=== PATIENT | female | born 2000 | race Hispanic/Latino ===

== ENCOUNTER 2024-08-25 21:27 | Emergency (ER) | payer MEDICAID ==
[~2024-08-25] VITALS: Ht 165.1 cm; Wt 97.5 kg
--- NOTE | 2024-08-25 21:32 | NUR ---
UA CUP PROVIDED
--- NOTE | 2024-08-25 21:39 | NUR ---
UA COLLECTED AND SENT
[2024-08-25 23:24] LABS: APPEARANCE,URINE TURBID (CLEAR); BILIRUBIN,URINE NEGATIVE (NEGATIVE); COLOR,URINE LIGHT-ORANGE (YELLOW); GLUCOSE, URINE (UA) NEGATIVE (NEGATIVE); KETONES,URINE NEGATIVE (NEGATIVE); LEUKOCYTE ESTERASE ,URINE 25 Leu/uL (NEGATIVE); NITRATE,URINE NEGATIVE (NEGATIVE); OCCULT BLOOD,URINE NEGATIVE (NEGATIVE); PROTEIN,URINE NEGATIVE (NEGATIVE); UROBILINOGEN,URINE 0.2 mg/dL (0.2-1.0)
[2024-08-25 23:26] LABS: ADD UA MICROSCOPIC YES
[2024-08-25 23:33] LABS: BACTERIA,URINE RARE /HPF (None Seen); SQUAMOUS EPITHELIAL CELL,UR MANY /HPF (0-2)
[2024-08-26] MEDS: 0.9%NACL 1000ML 1,000 ML IV ONE (00:10)
[2024-08-26] MEDS: ondanSETRON 4MG INJ IVP ONE (00:11)
[2024-08-26] MEDS: morPHINE 4 MG SYG IVP ONE (00:11)
[2024-08-26] MEDS: PANTOPrazole 40 MG/VIAL IVP ONE (00:11)
[2024-08-26 00:29] LABS: CREATININE 0.5 mg/dL (0.5-1.0); POTASSIUM 3.6 mmol/L (3.5-5.1)
[2024-08-26 00:34] LABS: ALBUMIN 3.9 g/dL (3.5-5.0); BILIRUBIN,DIRECT 0.1 mg/dL (0.0-0.3); BILIRUBIN,TOTAL 0.3 mg/dL (0.2-1.0); TOTAL PROTEIN, SERUM 7.8 g/dL (6.0-8.3)
[2024-08-26 00:38] LABS: BASOPHILS # (AUTO) 0.03 K/uL (0.00-0.20); BASOPHILS % (AUTO) 0.3 % (0.0-5.0); EOSINOPHILS # (AUTO) 0.09 K/uL (0.00-0.70); EOSINOPHILS % (AUTO) 0.8 % (0.0-8.0); HEMATOCRIT 39.8 % (36-48); IMMATURE GRANULOCYTE ABSOLUTE 0.04 K/uL (0-1); LYMPHOCYTES # (AUTO) 1.8 K/uL (1.0-4.8); LYMPHOCYTES % (AUTO) 14.9 % (21.0-51.0); MEAN CORPUSCULAR HGB CONC 32.2 g/dL (32.0-36.0); MONOCYTES # (AUTO) 0.6 K/uL (0.1-1.0); MONOCYTES % (AUTO) 5.2 % (3.0-13.0); NEUTROPHILS # (AUTO) 9.3 K/uL (1.8-7.7); NEUTROPHILS % (AUTO) 78.5 % (40.0-77.0); PLATELET COUNT (AUTO) 295 K/uL (130-400); RED BLOOD CELL COUNT(AUTO) 4.74 MIL/uL (4.00-5.50); RED CELL DISTRIBUTION WIDTH 13.5 % (11.0-15.5); WHITE BLOOD COUNT (AUTO) 11.9 K/uL (4.8-10.8)
--- NOTE | 2024-08-26 01:01 | ERN ---
ED Note History of Present Illness Stated Complaint: ABD/ BACK PAIN Chief Complaint: Abdominal Pain Time Seen by MD: 22:00 Time Seen by Midlevel: 22:00 Dictation: The patient is a 24-year-old female who presents to the emergency department with complaints of epigastric abdominal pain onset this morning associated with nausea. Patient reports she had pizza this morning and then prior to arrival she had three jalapeno poppers which then caused her to have the epigastric pain that radiated to the back. Denies any vomiting, diarrhea or constipation. Denies any fevers. Allergies: Coded Allergies: No Known Allergies (Unverified Allergy, Unknown, 08/25/24) Past Medical History Past Medical History: No Pertinent History Surgical History: Tonsillectomy, Other Surgical History Other: ADENOIDS LMP: Jul 27, 2024 RN Note Reviewed/Agreed w/PFSH: Yes Review of System Dictation Constitutional: Negative for fever,chills, and weight loss Eyes: Negative for injury, pain,redness, and discharge ENT: Negative for injury,pain or swelling Cardiovascular: Negative for chest pain, palpitations, and edema Respiratory: Negative for shortness of breath, cough, and wheezing, Abdomen/GI: Negative for vomiting, diarrhea, and constipation positive for abdominal pain, nausea Back: Negative for injury and pain : Negative for injury, bleeding and discharge MS/Extremity: Negative for injury and deformity Skin: Negative for rash, and discoloration Neuro: Negative for headache, weakness, numbness, tingling, and seizure Psych: Negative for suicide ideation, homicidal ideation, and hallucinations Initial Vital Sign VS Vital Signs Date Time Temp Pulse Resp B/P (MAP) Pulse Ox O2 Delivery O2 Flow Rate FiO2 08/25/24 21:28 99.7 106 20 136/97 100 Room Air Physical Exam Dictation Vital Signs reviewed General Appearance: Alert, oriented x 3, no acute distress, well developed, nourished. Head and Face: non-traumatic. Eyes: PERRL, pink conjunctivas, eyelid no trauma, anterior chamber with arcus senilis. Ears: Pinnas intact and no signs of trauma or erythema ear canals clear and no discharge TM no erythema Nose: No discharge, no bleeding. Oropharynx: Mouth normal, tongue pink. pharynx clear,no erythema, tonsils no exudates, no abscesses noted, mucous membrane moist Neck: Supple, non-tender, no thyromegaly, no masses, no JVD, no bruits Breast:Deferred Chest:No tenderness, no crepitus, no paradoxical movement, no retractions Lungs:Clear, well-ventilated, symmetric, no rales, no wheezing, no rhonchi, no stridor, good breath sounds bilaterally Heart: Regular rate, regular rhythm, no murmur, no gallops Vascular: no peripheral edema, Abdomen: Soft, positive bowel sounds, nondistended, no guarding, Epigastric tenderness, no rebound, no masses no hepatomegaly, no splenomegaly, no Solo's sign, no hernias. Rectal: Deferred Genital: Deferred Neurological: Normal speech, motor function intact, sensory function intact Musculoskeletal: Neck nontender, full range of motion, back nontender, full range of motion, Extremities: nontender, full range of motion Skin: Color pink, dry, no turgor, no rash, no lacerations, no abrasions, no contusions. Lymphatic: Deferred Results (Laboratory/Radiology) Laboratory/Radiology Laboratory Tests Test 08/25/24 21:39 08/26/24 00:08 Urine Color LIGHT-ORANGE (YELLOW) Urine Appearance TURBID (CLEAR) Urine pH 6.0 (5.0-8.0) Urine Specific [place] 1.027 (1.001-1.031) Urine Protein NEGATIVE mg/dL (NEGATIVE) Urine Glucose (UA) NEGATIVE mg/dL (NEGATIVE) Urine Ketones NEGATIVE mg/dL (NEGATIVE) Urine Occult Blood NEGATIVE (NEGATIVE) Urine Nitrate NEGATIVE (NEGATIVE) Urine Bilirubin NEGATIVE mg/dL (NEGATIVE) Urine Urobilinogen 0.2 mg/dL (0.2-1.0) Urine Leukocyte Esterase 25 Jean[place]ude/uL (NEGATIVE) H Urine RBC 2-5 /HPF (0-1) H Urine WBC 2-5 /HPF (0-1) H Urine Squamous Epithelial Cells MANY /HPF (0-2) Urine Amorphous Crystals (Auto) FEW /LPF (None Seen) Urine Bacteria RARE /HPF (None Seen) White Blood Count 11.9 K/uL (4.8-10.8) H Red Blood Count 4.74 MIL/uL (4.00-5.50) Hemoglobin 12.8 g/dL (12.0-16.0) Hematocrit 39.8 % (36-48) Mean Corpuscular Volume 84.0 fL (79-99) Mean Corpuscular Hemoglobin 27.0 pg (27.0-33.0) Mean Corpuscular Hemoglobin Concent 32.2 g/dL (32.0-36.0) Red Cell Distribution Width 13.5 % (11.0-15.5) Platelet Count 295 K/uL (130-400) Mean Platelet Volume 11.5 fL (7.5-10.5) H Immature Granulocyte % (Auto) 0.3 % (0-1) Neutrophils (%) (Auto) 78.5 % (40.0-77.0) H Lymphocytes (%) (Auto) 14.9 % (21.0-51.0) L Monocytes (%) (Auto) 5.2 % (3.0-13.0) Eosinophils (%) (Auto) 0.8 % (0.0-8.0) Basophils (%) (Auto) 0.3 % (0.0-5.0) Neutrophils # (Auto) 9.3 K/uL (1.8-7.7) H Lymphocytes # (Auto) 1.8 K/uL (1.0-4.8) Monocytes # (Auto) 0.6 K/uL (0.1-1.0) Eosinophils # (Auto) 0.09 K/uL (0.00-0.70) Basophils # (Auto) 0.03 K/uL (0.00-0.20) Absolute Immature Granulocyte (auto 0.04 K/uL (0-1) Nucleated Red Blood Cells 0.0 % (0.0-0.19) Sodium Level 136 mmol/L (136-145) Potassium Level 3.6 mmol/L (3.5-5.1) Chloride Level 102 mmol/L (101-111) Carbon Dioxide Level 26 mmol/L (21-32) Blood Urea Nitrogen 14 mg/dL (7-18) Creatinine 0.5 mg/dL (0.5-1.0) Glomerular Filtration Rate Calc 135 mL/min (>90) Random Glucose 98 mg/dL (70-105) Total Calcium 9.0 mg/dL (8.5-10.1) Total Bilirubin 0.3 mg/dL (0.2-1.0) Direct Bilirubin 0.1 mg/dL (0.0-0.3) Aspartate Amino Transf (AST/SGOT) 14 U/L (10-37) Alanine Aminotransferase (ALT/SGPT) 16 U/L (12-78) Alkaline Phosphatase 104 U/L (50-136) Total Protein 7.8 g/dL (6.0-8.3) Albumin 3.9 g/dL (3.5-5.0) Lipase 37 U/L (16-77) Serum Test, Qualitative NEGATIVE (NEGATIVE) Labs Reviewed?: Yes ED Course ED Course Orders Procedure Category Date Status Time Cbc With Differential LAB 08/25/24 Complete 22:45 0.9%Nacl 1000ml (Ns PHA 08/25/24 Complete 1000ml) 23:00 Morphine 4mg Syg PHA 08/25/24 Complete (Morphine 4mg Syg) 23:00 Ondansetron 4mg Inj PHA 08/25/24 Complete (Zofran 4mg Inj) 23:00 Pantoprazole 40mg Inj PHA 08/25/24 Complete (Protonix 40mg Inj 23:00 Lipase LAB 08/25/24 Complete 22:45 Basic Metabolic Panel LAB 08/25/24 Complete 22:45 Testing, LAB 08/25/24 Complete Serum Hcg 22:45 Hepatic Function Panel LAB 08/25/24 Complete 22:45 Urinalysis Profile LAB 08/25/24 Complete 22:45 Current Medications Medications (Trade) Dose Ordered Sig/[place] Route PRN Reason Start Time Stop Time Status Last Admin Dose Admin Morphine Sulfate (morPHINE 4MG SYG) 4 mg ONCE ONCE IVP 08/25/24 23:00 08/25/24 23:01 DC 08/26/24 00:11 Ondansetron HCl (zoFRAN 4MG INJ) 4 mg ONCE ONCE IVP 08/25/24 23:00 08/25/24 23:01 DC 08/26/24 00:11 Pantoprazole Sodium (PROTonix 40MG INJ) 40 mg ONCE ONCE IVP 08/25/24 23:00 08/25/24 23:01 DC 08/26/24 00:11 Sodium Chloride 1,000 ml @ 0 mls/hr ONCE ONCE IV 08/25/24 23:00 08/25/24 23:01 DC 08/26/24 00:10 Vital Signs Date Time Temp Pulse Resp B/P (MAP) Pulse Ox O2 Delivery O2 Flow Rate FiO2 08/25/24 21:28 99.7 106 20 136/97 100 Room Air Medical Decision Making MDM The patient is a 24-year-old female who presents to the emergency department with complaints of epigastric abdominal pain onset this morning associated with nausea. Patient reports she had pizza this morning and then prior to arrival she had three jalapeno poppers which then caused her to have the epigastric pain that radiated to the back. Denies any vomiting, diarrhea or constipation. Denies any fevers. CBC showed mild leukocytosis, no anemia, chemistry showed no electrolyte imbalance, normal renal function, negative lipase, normal liver enzymes. Urinalysis with slight leukocyte esterase. Patient reports improving in pain with medications. Patient with a nontender abdomen will be discharged to follow up with PCP. Patient no acute distress. Differential diagnosis: Gastroenteritis, gastritis, electrolyte imbalance, dehydration Need for hospitalization: Patient does not meet criteria for hospitalization. There are no social concerns with this patient. DX & DISP Disposition: Discharge Departure Impression: Primary Impression: Gastritis Additional Impression: UTI (urinary tract infection) Condition: Stable Scripts Nitrofurantoin Monohyd/M-Cryst (Macrobid 100 mg Capsule) 100 Mg Capsule 1 CAP PO BID for 5 Days, #10 CAP 0 Refills Prov: DEE SOSA 08/26/24 Pantoprazole Sodium (Pantoprazole Sodium) 20 Mg Tablet.dr 1 TAB PO DAILY for 30 Days, #30 TAB 0 Refills Prov: DEE SOSA 08/26/24 Ondansetron (Ondansetron Odt) 4 Mg Tab.rapdis 4 MG PO Q6HPRN PRN for nausea, #16 TAB 0 Refills Prov: DEE SOSA 08/26/24 Mag Hydrox/Al Hydrox/Simeth (Maalox Maximum Strength Susp) 400 Mg-400 Mg-40 Mg/5 Ml Oral.susp 20 ML PO Q6H for 5 Days, #355 ML 0 Refills Prov: DEE SOSA 08/26/24 Additional Instructions: Take medications as prescribed. Avoid any foods that exacerbate your symptoms. If symptoms worsen please return to ER. FOLLOW-UP WITH PRIMARY CARE PROVIDER IN 1 TO 2 DAYS. TAKE MEDICATIONS DIRECTED HERE IN THE EMERGENCY ROOM. OKAY TO CONTINUE HOME MEDICATIONS UNLESS OTHERWISE DISCUSSED DURING YOUR VISIT IN THE EMERGENCY ROOM TODAY. RETURN TO YOUR NEAREST EMERGENCY ROOM IF SYMPTOMS WORSEN OR IF THERE IS NO IMPROVEMENT. CALL 911 IF YOU NEED IMMEDIATE ASSISTANCE. TAKE TYLENOL OR MOTRIN [id number] NEEDED AND IF NO CONTRAINDICATIONS ARE PRESENT. INCREASE ORAL HYDRATION. A WOUND CULTURE OR URINE CULTURE WAS ORDERED HERE IN THE EMERGENCY ROOM DEPARTMENT PLEASE FOLLOW-UP WITH PRIMARY CARE PROVIDER AND ADVISE THEM TO GET REPEAT PORTS FROM OUR FACILITY. IF YOU HAD ANY FER WRAP/SPLINTS THAT WERE APPLIED HERE, PLEASE DO NOT REMOVE THEM UNTIL YOU SEE YOUR PRIMARY CARE OR SPECIALTY. Referrals: SELF,REFERRAL (PCP) Time of Disposition: 01:11 I have reviewed the case, and I agree with, Diagnosis and Plan DEE SOSA OYSTER FISHERMAN Aug 26, 2024 01:01
[2024-08-26] MEDS ORDERED: PANT20TA18 PO (01:13)
[2024-08-26] MEDS ORDERED: MAG-55 PO (01:13)
[2024-08-26] MEDS ORDERED: ONDA-243 PO (01:13)
[2024-08-26] MEDS ORDERED: NITR100C4 PO (01:13)
[2024-08-26] MEDS: cefTRIAXone 1G VIAL IVPB ONE (01:27)
[2024-08-26] MEDS ORDERED: IOHEXOL 350 MG/ML 100ML INFUS..BTL IV ONE (01:55)
[2024-08-26] MEDS ORDERED: FAMO-136 PO (03:30)
[2024-08-26] MEDS ORDERED: OMEP20CA12 PO (03:30)
[2024-08-26] MEDS ORDERED: FAMOTIDINE 20MG VIAL IV ONE (03:30)
[2024-08-26] MEDS: FAMOTIDINE 20MG VIAL IV ONE (03:46)
[2024-08-26 03:56] VITALS: BP 135/65; PULSE 88; RESP 18; TEMP 98.9; O2SAT 99
--- NOTE | 2024-08-26 08:45 | HMCIMG ---
Exam Type: CT ABDOMEN/PELVIS W/CONTRAST Clinical Information: persistent mid epigastric abd pain Comparison: None Contrast: 100 cc's Isovue 370 IV, no complications or adverse reactions CT Dose Index (CTDI): 31.60 mGy Dose Length Product (DLP): 1740.80 total mGy-cm Findings: No evidence of nephro or ureterolithiasis is found. No hydronephrosis or ureteral dilatation is seen. The lung bases are clear. The stomach is unremarkable. It shows no wall thickening. No gross ulceration is seen. It is not overly distended. There are no surrounding inflammatory changes. No wall lesions are identified to suggest cancer. The spleen is unremarkable. It is not enlarged. The pancreas shows normal anatomy. It is not fatty replaced. It shows no lesions. The pancreatic duct is not dilated. The gallbladder is unremarkable. It shows no cholelithiasis. The gallbladder wall is normal in thickness. There is no pericholecystic fluid. The is no acute or chronic inflammation noted. The adrenal glands are unremarkable. There is no enlargement. No lesions are noted. The liver is unremarkable. It shows no focal masses. The appendix is unremarkable. It shows no evidence of inflammation. No appendicolith is seen. The small bowel is unremarkable. There is no evidence of dilatation to suggest obstruction. No evidence of adynamic ileus is seen. There is no small bowel wall thickening to suggest enteritis. The colon is unremarkable. The urinary bladder is unremarkable. There is no wall thickening to suggest tumor or inflammation. There are no intraluminal calculi. There are no diverticula. There is no evidence of chronic bladder outlet obstruction. There is no evidence of urinary bladder distention to suggest urinary retention. The other pelvic structures are unremarkable. The bony and vascular structures are unremarkable for the patient's age. IMPRESSION: NEGATIVE CT SCAN OF THE ABDOMEN AND PELVIS WITH ORAL AND IV CONTRAST. This study was performed using dose reduction techniques to include automated exposure control and/or adjustment of the mA and/or kV according to patient size.
== END 2024-08-26 03:56 | disposition home or self-care (01) ==
LOC: EDH 21:27
DX: K29.70 Gastritis, unspecified, without bleeding (principal); N39.0 Urinary tract infection, site not specified; Z90.89 Acquired absence of other organs; Z98.890 Other specified postprocedural states
CPT/HCPCS: 99285; 80076; 80048; 84703; 83690; 85025; 81001; 36415; 74177; 96374; 96375; 96361; J3490; J0696; J2405; J2270; J2470; Q9967